=== PATIENT | female | born 2005 | race African-American/Black ===

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

== ENCOUNTER 2023-10-12 21:36 | Emergency (ER) | payer MEDICAID ==
[~2023-10-12] VITALS: Ht 157.5 cm; Wt 79.0 kg
[2023-10-12 22:36] VITALS: TEMP 98.1; O2SAT 100
[2023-10-12] MEDS: ACETAMINOPHEN 325MG TABLET PO ONE (23:51)
[2023-10-13] MEDS ORDERED: NAPR220C61 MT (01:08)
[2023-10-13 01:37] VITALS: BP 140/78; PULSE 70; RESP 18
== END 2023-10-13 02:02 | disposition home or self-care (01) ==
LOC: ER 21:36
DX: S99.812A Other specified injuries of left ankle, initial encounter (principal); G89.11 Acute pain due to trauma; J45.909 Unspecified asthma, uncomplicated; V98.8XXA Other specified transport accidents, initial encounter; Y93.89 Activity, other specified; Y92.89 Other specified places as the place of occurrence of the external cause; Y99.8 Other external cause status
CPT/HCPCS: 71045; 73610; 99284; Z7610

== ENCOUNTER 2024-05-21 20:35 | Emergency (ER) | payer MEDICAID ==
[~2024-05-21] VITALS: Ht 160 cm; Wt 79.8 kg
[~2024-05-21 20:35] MED LIST changes: +NAPR220C61 MT
[2024-05-21 20:42] VITALS: BP 138/91; RESP 16; TEMP 98.2; O2SAT 99
[2024-05-21 20:47] VITALS: PULSE 75; O2SAT 99
[2024-05-21 21:35] LABS: CLARITY URINE CLOUDY (CLEAR); COLOR URINE YELLOW (YELLOW); GLUCOSE URINE NEGATIVE (NEGATIVE); KETONES URINE NEGATIVE (NEGATIVE); LEUKOCYTE ESTERASE URINE TRACE (NEGATIVE); NITRITE URINE NEGATIVE (NEGATIVE); OCCULT BLOOD URINE NEGATIVE (NEGATIVE); PROTEIN URINE NEGATIVE (NEGATIVE); SPECIFIC GRAVITY URINE 1.018 (1.005-1.030); UROBILINOGEN URINE 0.2 E.U./dL (0.2-1.0)
[2024-05-21 22:13] LABS: RBC URINE 0-2 /hpf (0-2); SQUAMOUS EPITHELIAL CELL URINE 2+ /lpf (RARE/1+)
[2024-05-21 22:14] LABS: BACTERIA URINE 3+; WBC URINE 0-2 /hpf (0-2)
[2024-05-21 23:05] LABS: BASOPHILS % 0.4 % (0.0-2.0); EOSINOPHILS % 2.3 % (0.0-5.0); HEMATOCRIT. 36.3 % (36.0-48.0); LYMPHOCYTES % 37.4 % (20.0-50.0); MEAN CORPUSCULAR HEMOGLOBIN 27.7 pg (28.0-32.0); MEAN CORPUSCULAR HGB CONC 33.1 g/dL (31.0-37.0); MEAN CORPUSCULAR VOLUME 83.5 fL (81.0-99.0); MEAN PLATELET VOLUME 8.8 fl (7.4-10.4); MONOCYTES % 8.1 % (2.0-8.0); NEUTROPHILS % 51.8 % (40.0-76.0); PLATELET 320 x1000/uL (130-400); RED BLOOD CELL COUNT 4.35 mill/uL (4.2-5.4); RED CELL DISTRIBUTION WIDTH 15.7 % (11.6-14.6); WHITE BLOOD COUNT 6.6 x1000/uL (4.5-11.0)
[2024-05-21 23:15] LABS: CHLORIDE 108 mEq/L (98-107); POTASSIUM 4.2 mEq/L (3.5-5.1); SODIUM 140 mEq/L (136-145)
[2024-05-21 23:16] LABS: CARBON DIOXIDE 25 mEq/L (21-32)
[2024-05-21 23:17] LABS: CALCIUM 9.8 mg/dL (8.7-10.4)
[2024-05-21 23:21] LABS: CREATININE 0.8 mg/dL (0.6-1.0); GLUCOSE 85 mg/dL (70-105)
[2024-05-21 23:22] LABS: UREA NITROGEN BLOOD 7 mg/dL (9-23)
[2024-05-21 23:24] LABS: B-HCG QUANTITATIVE < 1 mIU/mL (<3)
[2024-05-22] MEDS: CEFTRIAXONE SODIUM 500MG VIAL IM ONE (00:45)
[2024-05-22] MEDS ORDERED: DOXY100C5 MT (02:05)
[2024-05-22] MEDS ORDERED: METR-167 MT (02:05)
== END 2024-05-22 02:25 | disposition home or self-care (01) ==
LOC: ER 20:35
DX: N73.0 Acute parametritis and pelvic cellulitis (principal); J45.909 Unspecified asthma, uncomplicated; Z91.013 Allergy to seafood; Z91.010 Allergy to peanuts
CPT/HCPCS: 99285; 76830; 76856; 80048; 81003; 84702; 85025; 86850; 86900; 86901; 36415; 96372; J0696

== ENCOUNTER 2024-09-04 13:03 | Emergency (ER) | payer MEDICAID ==
[~2024-09-04] VITALS: Ht 154.9 cm; Wt 73.0 kg
[~2024-09-04 13:03] MED LIST changes: +DOXY100C5 MT; +METR-167 MT
[2024-09-04 13:04] VITALS: O2SAT 100
[2024-09-04 13:20] VITALS: BP 135/78; PULSE 84; RESP 14; TEMP 36.7; O2SAT 99
[2024-09-04] MEDS ORDERED: METH-653 MT (15:33)
[2024-09-04] MEDS: IBUPROFEN 600MG TABLET PO ONE (15:46)
== END 2024-09-04 15:48 | disposition home or self-care (01) ==
LOC: ER 13:03
DX: M54.9 Dorsalgia, unspecified (principal); J45.909 Unspecified asthma, uncomplicated; Z79.899 Other long term (current) drug therapy
CPT/HCPCS: 99283

== ENCOUNTER 2024-09-16 22:36 | Emergency (ER) | payer MEDICAID ==
[~2024-09-16] VITALS: Ht 160 cm; Wt 88.4 kg
[~2024-09-16 22:36] MED LIST changes: +METH-653 MT
[2024-09-16 22:55] VITALS: O2SAT 100
[2024-09-16 23:16] VITALS: BP 143/95; PULSE 90; RESP 16; TEMP 36.9; O2SAT 98
[2024-09-17 00:37] LABS: BASOPHILS % 0.3 % (0.0-2.0); EOSINOPHILS % 0.3 % (0.0-5.0); HEMATOCRIT. 36.2 % (36.0-48.0); HEMOGLOBIN. 11.9 g/dL (12.0-16.0); LYMPHOCYTES % 23.5 % (20.0-50.0); MEAN CORPUSCULAR HGB CONC 32.9 g/dL (31.0-37.0); MEAN PLATELET VOLUME 8.4 fl (7.4-10.4); MONOCYTES % 9.3 % (2.0-8.0); NEUTROPHILS % 66.6 % (40.0-76.0); PLATELET 335 x1000/uL (130-400); RED BLOOD CELL COUNT 4.42 mill/uL (4.2-5.4); RED CELL DISTRIBUTION WIDTH 15.8 % (11.6-14.6); WHITE BLOOD COUNT 8.1 x1000/uL (4.5-11.0)
[2024-09-17 00:48] LABS: CHLORIDE 103 mEq/L (98-107); POTASSIUM 3.2 mEq/L (3.5-5.1); SODIUM 135 mEq/L (136-145)
[2024-09-17 00:49] LABS: CALCIUM 9.2 mg/dL (8.7-10.4); CARBON DIOXIDE 23 mEq/L (21-32)
[2024-09-17 00:54] LABS: CREATININE 0.8 mg/dL (0.6-1.0); GLUCOSE 87 mg/dL (70-105); UREA NITROGEN BLOOD 8 mg/dL (9-23)
[2024-09-17 01:18] LABS: HCG SCREEN POSITIVE
== END 2024-09-17 04:23 | disposition left against medical advice (07) ==
LOC: ER 22:36
DX: O20.9 Hemorrhage in early pregnancy, unspecified (principal); O99.511 Diseases of the respiratory system complicating pregnancy, first trimester; J45.909 Unspecified asthma, uncomplicated; N89.8 Other specified noninflammatory disorders of vagina; Z53.21 Procedure and treatment not carried out due to patient leaving prior to being seen by health care provider; Z3A.01 Less than 8 weeks gestation of pregnancy
CPT/HCPCS: 36415; 76801; 80048; 84702; 84703; 85025; 86850; 86900